=== PATIENT | female | born 1985 | race Caucasian/White ===

== ENCOUNTER 2017-03-14 20:15 | Day surgery (SDC) | payer OTHER, BC ==
[2017-03-14] MEDS: Lactated Ringers 1,000 ML IV SCH ×3 (19:00→21:36)
[2017-03-14] MEDS: Oxytocin/Normal Saline 30 UNIT/500 ML BAG IV SCH ×3 (19:20→21:37)
[~2017-03-14 20:15] MED LIST: Ferric Subsulfate Topical Soln 8 GM (8 ML) Bottle ONE; Silver Nitrate Applicator Each ONE; ceFAZolin 2 GM in Premix Bag 1 BAG IV ONE
[2017-03-14] MEDS ORDERED: Ferric Subsulfate Topical Soln 8 GM (8 ML) Bottle TOP ONE (20:56)
[2017-03-14] MEDS ORDERED: Oxytocin/Normal Saline 30 UNIT/500 ML BAG ONE (21:28)
[2017-03-14] MEDS ORDERED: Ondansetron 4 MG/2 ML SDV IV PRN (21:30)
[2017-03-14] MEDS ORDERED: Acetaminophen/Codeine 300-30 MG Tab PO PRN ×2 (21:30→21:33)
[2017-03-14] MEDS ORDERED: HYDROmorphone 1 MG/ML Syringe IVPUSH PRN (21:30)
[2017-03-14] MEDS ORDERED: Lactated Ringers 1,000 ML IV SCH (21:45)
[2017-03-15] MEDS: Oxytocin/Normal Saline 30 UNIT/500 ML BAG IV SCH ×2 (01:06→03:59)
--- NOTE | 2017-03-15 01:18 | OR ---
{null, DATE: 03/14/2017 PREOPERATIVE DIAGNOSIS: Incomplete miscarriage with heavy vaginal bleeding at 15 weeks 2 days' gestation by date and 12 weeks 2 days' gestation by recent ultrasound, which also showed demise. OPERATION PERFORMED: D and C with suction curettage. POSTOPERATIVE DIAGNOSIS: Incomplete miscarriage with heavy vaginal bleeding at 15 weeks 2 days' gestation by date and 12 weeks 2 days' gestation by recent ultrasound, which also showed demise. ESTIMATED BLOOD LOSS: In the operating room was 150 mL, although the patient did have approximately 350 mL of bleeding before going to the operating room. The patient has also passed tissue before going to the operating room. COMPLICATIONS: None. ANESTHESIA: General. DESCRIPTION OF PROCEDURE: After the induction of general anesthesia and after the patient was routinely prepped and draped in the usual fashion and in the dorsal lithotomy position, I did see a very large piece of placenta that was coming through the cervix and the vagina. This was carefully removed and sent to the Pathology Department. Now, the weighted speculum was inserted and single- tooth tenaculum was attached to the anterior lip of the cervix. The uterus did sound to approximately 10 cm. Now, the cervix which was already significantly dilated was gently further dilated with the Hinkle dilators. The sharp curettage was done initially and this was done very carefully and very systematically paying careful attention to all aspects of the endometrial cavity. A moderate amount of further tissue was obtained at that time. Now, the sponge, forceps was introduced into the uterine cavity and a slight amount of further tissue was obtained. All of this tissue was submitted on Telfa pads to the Pathology Department. Now, the #8 suction curette was also gently and carefully utilized and a slight amount of further blood and small fragments of tissue were obtained. As mentioned above, great caution was taken to make sure that all aspects of the endometrial cavity were carefully and systematically curetted, but we were careful to not over curette this delicate organ. Now, the IV intraoperative Pitocin was begun again. Just before this, we had given 2 g of IV Ancef for prophylaxis. Now, doing uterine massage, the uterus did contract down nicely and had minimal to no bloody discharge toward the end of the procedure. All of the instruments were now removed. The bimanual exam which had been done previously was unchanged on the second time around and as mentioned before, this revealed a 10-week size uterus that was in the mid position and no adnexal masses were detected. The sponge count was reported as correct. Estimated blood loss during this portion of the procedure was 150 mL. The patient's vital signs remained stable at all times, and she went to the recovery room in good condition. There were no intraoperative complications. The patient was initially scheduled for a D and C on 03/15/2017, but did begin with heavy bleeding late in the afternoon today of 03/14/2017 with the passage of some of the tissue per vagina. [facility] /[id number] }
[2017-03-15 10:18] VITALS: BP 91/63
== END 2017-03-15 09:57 | disposition home or self-care (01) ==
LOC: DL.SDS 20:15 → DL.MS 21:50 → UNDOADMOB 21:50 → DL.SDS 03-15 09:57 → UNDODISOB 03-15 09:57
PROVIDERS: ATTEND Obstetrics & Gynecology
DX: O03.1 Delayed or excessive hemorrhage following incomplete spontaneous abortion (principal); O36.4XX1 Maternal care for intrauterine death, fetus 1; Z3A.01 Less than 8 weeks gestation of pregnancy; J45.909 Unspecified asthma, uncomplicated; Z79.899 Other long term (current) drug therapy
CPT/HCPCS: 36415; 59812; 85014; 85018; 85027; 86850; 86900; 86901; J0690; J2590; J7120

== ENCOUNTER 2018-05-03 09:49 | Inpatient (IN) | payer OTHER, BC ==
[2018-05-03] MEDS ORDERED: Lidocaine 1% 30 ML SDV INJECT PRN (10:51)
[2018-05-03] MEDS ORDERED: Tranexamic Acid 1,000 MG in Sodium Chloride 0.9% 100 ML IV PRN (10:51)
[2018-05-03] MEDS ORDERED: Carboprost Tromethamine 250 MCG/1 ML Amp IM PRN (10:51)
[2018-05-03] MEDS ORDERED: Methylergonovine 0.2 MG/1 ML Amp IM PRN (10:51)
[2018-05-03] MEDS ORDERED: Lactated Ringers 500 ML IV ONE (10:51)
[2018-05-03] MEDS ORDERED: Ondansetron 4 MG/2 ML SDV IV PRN (10:51)
[2018-05-03] MEDS ORDERED: Misoprostol 400 MCG (4 X 100 MCG TAB) RECTAL PRN (10:51)
[2018-05-03] MEDS ORDERED: Sodium Chloride 0.9% 10 ML Syringe FLUSH PRN ×2 (10:51→20:10)
--- NOTE | 2018-05-03 12:48 | OBOUT ---
DATE: 05/03/2018 DATE AND TIME OF NST: Date: 05/03/2018 Time: 10:00 to 10:20. REASON FOR NST: 1. Intrauterine at 37 and 4/7 weeks, confirmed with 25 and 4/7-week ultrasound. 2. Gestational hypertension. 3. Intermittent headaches. 4. History of unstable lie, resolved last week, pending exam today. 5. GBS negative. 6. History of contractions status post betamethasone, 04/12/2018 and 04/13/2018. 7. Anticardiolipin antibody IgM x2 positive. 8. Antiphospholipid antibody positive. 9. On heparin and baby aspirin, missed dose today. 10.History of recurrent loss. 11.G8, P2-1-3-3. NST INTERPRETATION: During this time period, heart tone baseline is approximately 145 to 150 and there are at least two 15 x 15 beat per minute accelerations, making this strip reactive. It is also noted to be reassuring. Tocometer reveals potential of occasional contractions. Blood pressure 150/89, heart rate 85, temperature 98.1. Recheck blood pressure 150/83 with heart rate 99. ASSESSMENT: 1. Nonstress test, reactive and reassuring. 2. Tocometer with occasional contractions. PLAN: Due to her gestational hypertension and risk factors as above, the patient will be admitted. Please see admit history and physical for further details. Preeclampsia/HELLP labs/PIH panel will be done as well as a PTT, and we will evaluate her cervix and consider most likely artificial rupture of membranes if she has a stable lie today. The patient understands and agrees with the above treatment plan. [facility] /[id number] ALONSO
--- NOTE | 2018-05-03 13:33 | HP ---
PATIENT IDENTIFICATION: Isa Elias is a 32-year-old, G8, P2-1-3-3 intrauterine at 37 and 4/7 weeks, confirmed with 25 and 4/7 week ultrasound, who presents with gestational hypertension and headaches. HISTORY OF PRESENT ILLNESS: The patient describes headaches that have been intermittent, worsening over time over the last 3-4 days. She presented for a nonstress test today and had blood pressures elevated x2, 150/83 and initially 150/89. Because of this and the risk factors as above, as well as her headache, did discuss with proceeding with admission and induction of labor. She understands and agrees to the above treatment plan. To put this in context, she has CLAUDIA IgM x2 positive as well as has antiphospholipid antibody syndrome with history of recurrent loss, currently on heparin 10,000 units b.i.d. and baby aspirin daily, of which she skipped her dose this morning due to her above headaches and concerns. She also is status post betamethasone 04/12 to 04/13 due to her contractions. She has a history of fast labors and deliveries. Records were called for, reviewed as below, and supplemented by patient history. ANTEPARTUM LABORATORY DATA: ABO blood type AB positive, negative antibody. Rubella immune. Syphilis antibodies nonreactive. Negative hepatitis B surface antigen. Negative hep C, HIV, GC, and Chlamydia. Wet prep within normal limits. One-hour GTT was 95. GBS was negative in 3rd trimester. ALLERGIES: None. MEDICATIONS: Heparin 10,000 units b.i.d. subcutaneously, baby aspirin daily, iron sulfate 325 b.i.d., and vitamins daily. PAST MEDICAL AND PAST SURGICAL HISTORY: Remarkable for the above as well as a D and C in February of 2017. She also has history of asthma as a child. FAMILY HISTORY: Cancer in maternal grandfather with colon cance. Heart disease in maternal grandmother. Cousin with cerebral palsy. Negative family history otherwise. Negative for defects, anesthesia problems or bleeding problems. SOCIAL HISTORY: Lives in [place] with and her 3 children, dog, and guinea pig. 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 No alcohol, tobacco, or drug use. REVIEW OF SYSTEMS: Otherwise, reviewed and felt to be contributory for swelling. She lost her mucus plug. Denies any spotting, bleeding, leaking, otherwise has had good movement, and has an occasional contraction. OBJECTIVE: Vital Signs: Blood pressure 150/89, heart rate 85, temperature 98.1. Appearance: Female. Appears her stated age, acting appropriate for, nontoxic in appearance. HEENT: Head is atraumatic intact. EOMs intact. PERRLA. No obvious otorhinorrhea. Mucous membranes are moist. Neck: No obvious tenderness. Lungs: Clear to auscultation bilaterally. No increased work of breathing. Heart: S1 and S2. Regular rate and rhythm. Abdomen: Gravid, Augustin's indeterminate. Nontender and nondistended. Bowel sounds positive. No other organomegaly, pulsatile masses, or obvious hernias. No rebound, rigidity, or guarding. : Pending. Extremities: 1+ pitting edema to proximal tibia. Deep tendon reflexes 2/4 bilaterally and symmetric in lower extremities. Psychiatric: Moods and affect are congruent. Judgement and insight intact. Skin: Without cyanosis, clubbing, or jaundice. LABORATORY DATA: Pending is a PIH panel, a PTT. heart tones were found to be reactive and reassuring with a nonstress test today 135-145 baseline with acceleration noted with occasional contraction. ASSESSMENT: 1. Intrauterine at 37 and 4/7 weeks confirmed with 25 and 4/7 week ultrasound. 2. Gestational hypertension. 3. Headaches that are intermittent worsening over time associated with above. 4. History of unstable lie, resolved last week. We will re-evaluate her cervix today and consider induction of labor possibly with artificial rupture of membranes. 5. Group B Streptococcus negative. 6. History of contractions status post betamethasone 04/12 to 04/13. 7. Anticardiolipin antibody IgM x2 positive. 8. Antiphospholipid antibody syndrome, positive. 9. History of recurrent loss. 10.G8, P 2-1-3-3. PLAN: Due to her risk factors, shared decision was made to proceed with induction of labor. I did discuss with her following her PTT as she was recently on heparin, missed her dose today and skipped her baby aspirin dose today due to her symptoms. We will continue to follow clinically and closely. Please see other notes for further details. [facility] /[id number]
--- NOTE | 2018-05-03 14:39 | PN ---
DATE: 05/03/2018 SUBJECTIVE: The patient's headache is starting to improve minimally. OBJECTIVE: Vital Signs: Blood pressure 134/66, heart rate 98. Pelvic: heart tones 140 to 150 range baseline with accelerations noted. Tocometer reveals possible occasional contractions, nothing felt by the patient. Vaginal exam reveals to be 3+ cm, 25% to 50% effaced, -2 station, and vertex suspected. Artificial rupture of membranes done after discussion with the patient yielding copious amounts of clear fluid. ASSESSMENT AND PLAN: Intrauterine at 37 and 4/7 weeks, complicated by gestational hypertension. Labs returned negative for preeclampsia with a protein-creatinine ratio being 0.08 and HELLP labs being negative. She is group B streptococcus negative and now status post artificial rupture of membranes with copious amounts of clear fluid. Vertex was noted, and she had a history of unstable lie in the past. This obviously has been resolved, and we will continue to follow closely. [facility] /[id number]
[2018-05-03] MEDS: Lactated Ringers 1,000 ML IV SCH ×2 (17:00→17:40)
[2018-05-03] MEDS ORDERED: fentaNYL 100 MCG/2 ML SDV ONE (17:28)
[2018-05-03] MEDS ORDERED: Bupivacaine 0.75%/D5W 2 ML Amp ONE (17:28)
--- NOTE | 2018-05-03 18:31 | PCM.SN ---
- Free Text/Narrative Note: Intrathecal. sitting position, sterile prep and drape.1% lidocaine w bicarb for skinwheal to L2 L3, L3 L4,L4 L5 interspace, introducer x 9, 24 ga pencan x 9. Pos CSF, neg heme, neg parasthesia. 20 mcg pf sufenta, 30 mcg pf fentanyl, 0.4 ml pf NS and 6 mg of 0.75% pf bupivacaine injected after CSF aspiration. Pt to L lateral position. Procedure time 1735 to 1835.
[2018-05-03] MEDS ORDERED: Oxytocin/Normal Saline 30 UNIT/500 ML BAG IV SCH (19:15)
[2018-05-03] MEDS ORDERED: Oxytocin 10 Units/1 ML SDV IM PRN (20:10)
[2018-05-03] MEDS ORDERED: Ibuprofen 800 MG Tab PO PRN (20:10)
[2018-05-03] MEDS ORDERED: Benzocaine/Menthol 20%-0.5% Spray 56 GM Canister TOP PRN (20:10)
[2018-05-03] MEDS ORDERED: Simethicone 80 MG Tab.Chew PO PRN (20:10)
[2018-05-03] MEDS ORDERED: Zolpidem 5 MG Tab PO PRN (20:10)
[2018-05-03] MEDS ORDERED: Acetaminophen/oxyCODONE 325-5 MG Tab PO PRN (20:14)
[2018-05-03] MEDS ORDERED: diphenhydrAMINE 25 MG Tab PO PRN (20:26)
[2018-05-04] MEDS: Acetaminophen 325 MG Tab PO PRN ×3 (07:15→20:28)
[2018-05-04] MEDS: Docusate Sodium 100 MG Cap PO PRN (09:23)
[2018-05-04] MEDS: Prenatal Multivitamin with Calcium/Folic Acid/Iron Tab PO SCH (09:23)
[2018-05-04] MEDS: Enoxaparin 40 MG/0.4 ML Syringe SUBCUT SCH (20:28)
[2018-05-05] MEDS: Acetaminophen 325 MG Tab PO PRN (07:25)
[2018-05-05 07:34] VITALS: BP 137/79
[2018-05-05] MEDS: Enoxaparin 40 MG/0.4 ML Syringe SUBCUT SCH (08:47)
[2018-05-05] MEDS: Prenatal Multivitamin with Calcium/Folic Acid/Iron Tab PO SCH (08:47)
[2018-05-05] MEDS: Docusate Sodium 100 MG Cap PO PRN (08:47)
[2018-05-05] MEDS ORDERED: Enoxaparin 40 MG/0.4 ML Syringe SUBCUT PRN (09:00)
[2018-05-05] MEDS ORDERED: fentaNYL 100 MCG/2 ML SDV ITHECAL ONE (12:14)
[2018-05-05] MEDS ORDERED: Bupivacaine 0.75%/D5W 2 ML Amp ONE (12:14)
--- NOTE | 2018-05-06 09:44 | PN ---
DATE: 05/03/2018 SUBJECTIVE: The patient started to feel her contractions more. OBJECTIVE: heart tones in the 140s to 150s range. Acceleration x1 is seen. Tocometer reveals contractions every 1.5 to 2 to 3 minutes. Vaginal exam reveals her to be 5 cm, 50% to 75% effaced, -1 to -2 station, vertex suspected, and copious amounts of clear fluid noted. ASSESSMENT: Intrauterine at 37 and 4/7 weeks, complicated by gestational hypertension with intermittent headaches with history of unstable lie, that has now resolved with antiphospholipid antibody syndrome and CLAUDIA IgM antibody x2 positive with history of recurrent loss and requiring heparin and aspirin during this . Last doses were last night. PLAN: We will continue to follow up clinically and closely. Did discuss pain management options. We will re-evaluate in approximately 30 to 40 minutes or sooner if need be. [facility] /[id number]
--- NOTE | 2018-05-06 09:47 | PN ---
DATE: 05/03/2018 SUBJECTIVE: The patient is status post intrathecal and comfortable. OBJECTIVE: heart tones in the 130s to 140s and reassuring. Tocometer reveals contractions every couple of minutes. Vaginal exam reveals her to be 8 cm, 100% effaced, 0 to +1 station, vertex suspected. ASSESSMENT AND PLAN: 1. Nearing second stage of labor in a 8, para 2-1-3-3, intrauterine at 37-4/7 weeks with gestational hypertension and intermittent headaches. We will continue to follow clinically and closely. [facility] /[id number]
--- NOTE | 2018-05-06 10:05 | DEL ---
DATE: 05/03/2018 PREOPERATIVE DIAGNOSES: 1. Intrauterine 37 and 4/7 weeks, confirmed with 25 and 4/7-week ultrasound. 2. Gestational hypertension. 3. Headaches, intermittent. 4. History of unstable lie, resolved. 5. Group B Streptococcus negative. 6. History of contraction, status post betamethasone 04/12/2018 to 04/13/2018. 7. History of asthma as a child. 8. CLAUDIA IgM x2, positive. 9. Antiphospholipid antibody syndrome positive on heparin and aspirin until the evening before admission. 10.History current loss. 11.G8, P2-1-3-3. POSTOPERATIVE DIAGNOSES: 1. Intrauterine 37 and 4/7 weeks, confirmed with 25 and 4/7-week ultrasound, delivered. 2. Gestational hypertension. 3. Headaches, intermittent. 4. History of unstable lie, resolved. 5. Group B Streptococcus negative. 6. History of contraction, status post betamethasone 04/12/2018 to 04/13/2018. 7. History of asthma as a child. 8. CLAUDIA IgM x2, positive. 9. Antiphospholipid antibody syndrome positive on heparin and aspirin until the evening before admission. 10.History current loss. 11.G8, P2-1-3-3. 12.Periurethral and perineal abrasions, nonbleeding, non-repaired after discussion with patient. PROCEDURE PERFORMED: NST followed by artificial rupture of membranes and then subsequent spontaneous vaginal delivery on 05/03/2018. ANESTHESIA/ANALGESIA: The patient did receive an intrathecal in the first stage of labor. ESTIMATED BLOOD LOSS: 200 mL. FINDINGS: Female. scores and weight pending. SUMMARY OF EVENTS: The patient is a 32-year-old, G8, P2-1-3-3, intrauterine at 37 and 4/7 weeks, presented for a nonstress test, had gestational hypertension with blood pressures x2 with systolics in the 150s. She had intermittent headaches associated with this. Preeclampsia labs/HELLP labs were done which were negative. Because of this as well as her high risk factors as above and history of unstable lie that was resolved with vertex upon presentation, shared decision was made to proceed with the above procedures. She underwent NST followed by artificial rupture of membranes, followed closely. Later in the first stage of labor, she requested something for pain and was given intrathecal. She was found to be complete and I was called to the room. I donned sterile gown and gloves. Upon my arrival into the room, patient pushed with contractions and after approximately 2 to 3 contractions, vertex was delivered in SARITHA presentation, followed by anterior and posterior shoulder as well as rest of the without difficulty. Mouth and nares were suctioned. Cord was doubly clamped and cut, and was resuscitated on mother's abdomen. Then, approximately 10 mL of cord blood was obtained for labs. Placenta then delivered with gentle cord traction and fundal massage within approximately 5 to 10 minutes. Perineum, vagina, and perirectal areas were then examined, noted to have a small periurethral and perineal abrasion, nonbleeding, non-repaired after discussion with the patient. Mother and infant are currently stable at the time of dictation. [facility] /[id number]
--- NOTE | 2018-05-06 10:14 | PN ---
DATE: 05/04/2018 day #1. SUBJECTIVE: The patient is tolerating p.o., ambulating, urinating, passing flatus. OBJECTIVE: Vital Signs: Temp 97.5, heart rate 73, blood pressure 120/72, respiratory rate 18. Lungs: Clear to auscultation bilaterally. Heart: S1, S2. Regular rate and rhythm. Abdomen: Firm uterus at the umbilicus. Extremities: Trace pedal edema. No calf pain. LABORATORY DATA: White cell count 13.7, hemoglobin 12.2, and platelets 176. ASSESSMENT AND PLAN: day #1, status post spontaneous vaginal delivery, complicated with antiphospholipid antibody and CLAUDIA IgM positivity x2 with recommendation from [facility] to resume Lovenox in the period for 6 weeks. We will start on Lovenox 40 mg this evening and daily thereafter per recommendations. We will hold off on any NSAIDs for treatment of pain due to this and this was discussed with the patient, she understands and agrees with the above treatment plan. Possible discharge tomorrow. [facility] /[id number]
--- NOTE | 2018-05-06 11:56 | DISCH ---
ADMIT DIAGNOSES: 1. Intrauterine 37 and 4/7 weeks, confirmed with 25 and 4/7 week ultrasound. 2. Gestational hypertension. 3. Intermittent headaches. 4. History of unstable lie-resolved upon admission. 5. Group B streptococcus negative. 6. History of contraction, status post betamethasone, April 12 to April 13. 7. Anticardiolipin antibody IgM x2 positive. 8. Antiphospholipid antibody syndrome positive. 9. History recurrent loss. 10.On heparin and baby aspirin in the last few weeks due to the above. She was on Lovenox and baby aspirin prior. 11.G8, P2-1-3-3. 12.History of asthma as a child. POSTOPERATIVE DIAGNOSES: 1. Intrauterine 37 and 4/7 weeks, confirmed by 25 and 4/7 week ultrasound, delivered. 2. Gestational hypertension. 3. Intermittent headaches. 4. History of unstable lie-resolved, upon admission. 5. Group B streptococcus negative. 6. History of contraction, status post betamethasone, April 12 to April 13. 7. Anticardiolipin antibody IgM x2 positive. 8. Antiphospholipid antibody syndrome positive. 9. History recurrent loss. 10.On heparin and baby aspirin in the last few weeks due to the above. She was on Lovenox and baby aspirin prior. 11.G8, P2-1-3-3. 12.History of asthma as a child. 13.Periurethral and perineal abrasion, nonbleeding, non-repaired after discussion with patient. PROCEDURE PERFORMED: NST, artificial rupture of membranes, spontaneous vaginal delivery on date of admission per Dr. Finn. HISTORY OF PRESENT ILLNESS: Please see H and P. SUMMARY OF HOSPITAL COURSE: The patient was admitted on the above date with the above diagnoses and underwent the above procedures. She did have preeclampsia HELLP labs were negative. She went on to have a spontaneous vaginal delivery yielding a female with scores of 8 and 9, weighing 7 pounds 3 ounces (3255 g). Please see delivery note for further details. day #1, please see progress note. Labs were followed closely. White cell count 13.7, hemoglobin 12.2, which is the same from predelivery hemoglobin, and platelets were 176. day #2, date of discharge; the patient was tolerating p.o., ambulating, urinating, passing flatus, and requesting discharge. PHYSICAL EXAMINATION: Vital Signs: Last set of vitals updated and listed in the chart. Temperature 98.2, heart rate 81, blood pressure 137/79, respiratory rate 16. Lungs: Clear to auscultation bilaterally. Heart: S1 and S2. Regular rate and rhythm. Pelvic: Firm uterus around the umbilicus. Extremities: 1+ pitting edema to proximal tibia. No calf pain. CONDITION ON DISCHARGE COMPARED TO CONDITION ON ADMISSION: Improved. DISCHARGE INSTRUCTIONS: 1. Diet: As tolerated. 2. Activity: No lifting more than 20 pounds. No sit-ups, straining, and Pelvic rest for the next 6 weeks with immediate return to fertility discussed with the patient. 3. ReasonS to return or go to the emergency room were discussed with the patient in detail including, but not limited to, temperature greater than 100.4, foul-smelling discharge, red hot tender breasts, or increased vaginal bleeding. DISCHARGE MEDICATIONS: 1. [id number] Tylenol as needed. 2. Lovenox 40 mg subcutaneous daily for 6 weeks per MFM recommendations. 3. Breast pump script was written for. 4. Followup: Follow up for 6 week . I did discuss with the patient in the interim reasons to return or go to the emergency room in regard to her infant and ramifications of not doing so. She understands and agrees. [facility] /[id number]
== END 2018-05-05 12:15 | disposition home or self-care (01) | DRG 775 ==
LOC: DL.OBCHECK 09:49 → DL.OB 10:30 → OBSVTOIN 20:02 → DL.MS 05-04 22:30
PROVIDERS: ADMIT Family Medicine; ATTEND Family Medicine
PROC: 10E0XZZ Delivery of Products of Conception, External Approach (ICD-10-PCS; principal; 2018-05-03)
PROC: 10907ZC Drainage of Amniotic Fluid, Therapeutic from Products of Conception, Via Natural or Artificial Opening (ICD-10-PCS; 2018-05-03)
PROC: 4A1H7CZ Monitoring of Products of Conception, Cardiac Rate, Via Natural or Artificial Opening (ICD-10-PCS; 2018-05-03)
DX: O13.4 Gestational [pregnancy-induced] hypertension without significant proteinuria, complicating childbirth (principal); R51 Headache; O09.43 Supervision of pregnancy with grand multiparity, third trimester; Z3A.37 37 weeks gestation of pregnancy; Z37.0 Single live birth
CPT/HCPCS: 36415; 59025; 59409; 81003; 82565; 82570; 83615; 84156; 84450; 84460; 84520; 84550; 85027; 85730; A9270-GY; J1650; J2405; J2590; J7120

== ENCOUNTER 2021-10-17 09:18 | Emergency (ER) | payer OTHER, BC ==
[2021-10-17 09:34] VITALS: BP 153/93; PULSE 103
--- NOTE | 2021-10-17 10:08 | EDM.PDOC ---
ED HPI GENERAL MEDICAL PROBLEM - General Chief Complaint: Eye Problems Stated Complaint: VISION IMPAIRMENT Time Seen by Provider: 10/17/21 09:50 Source of Information: Reports: Patient, RN, RN Notes Reviewed History Limitations: Reports: No Limitations - History of Present Illness INITIAL COMMENTS - FREE TEXT/NARRATIVE: Isa is a 36 y/o female who presents to the ED via personal vehicle at the request of her primary care provider for vision changes, headache, and left eye droop. The patient reports her symptoms of left eye droop and subsequent headache began in June 2021; she has since doctored with her PCP and program director. She has been prescribed antihistamines, antibiotics, and more recently told to patch her left eye due to a new onset double vision. She notes the double vision has become more constant; she was set up for an MRI for November 07. She has been prescribed Imitrex [place] which her pharmacy will have in-stock for her today. She denies fever, shaking chills, dizziness, cough, sore throat, sinus pressure/pain, chest pain/pressure, shortness of breath, or dyspepsia. She denies tobacco, alcohol, or recreational drug use. - Related Data Allergies Allergy/AdvReac Type Severity Reaction Status Date / Time No Known Allergies Allergy Verified 10/17/21 09:34 Home Meds: Home Meds Acetaminophen 2 tab PO ASDIRECTED PRN 03/14/17 [History] Albuterol [Ventolin HFA] 1 - 2 puff INH ASDIRECTED PRN 03/14/17 [History] Past Medical History HEENT History: Reports: Impaired Vision, Other (See Below) Other HEENT History: WEARS CORRECTIVE LENS PRN Cardiovascular History: Reports: None Respiratory History: Reports: Asthma, Other (See Below) Other Respiratory History: as a child, does not use inhaler often Gastrointestinal History: Reports: None Genitourinary History: Reports: None 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 EFFICIENCY MANAGER History: Reports: Dysfunctional Uterine Bleeding, , Spontaneous Musculoskeletal History: Reports: None Neurological History: Reports: Migraines Psychiatric History: Reports: None Endocrine/Metabolic History: Reports: None Hematologic History: Reports: Other (See Below) Other Hematologic History: antiphospholipid syndrome Immunologic History: Reports: None Oncologic (Cancer) History: Reports: None Dermatologic History: Reports: None - Infectious Disease History Infectious Disease History: Reports: None - Past Surgical History Head Surgeries/Procedures: Reports: None HEENT Surgical History: Reports: Oral Surgery, Other (See Below) Other HEENT Surgeries/Procedures: WISDOM TEETH EXTRACTION Cardiovascular Surgical History: Reports: None Respiratory Surgical History: Reports: None GI Surgical History: Reports: None Endocrine Surgical History: Reports: None Neurological Surgical History: Reports: None Musculoskeletal Surgical History: Reports: None Oncologic Surgical History: Reports: None Dermatological Surgical History: Reports: None Social & Family History - Family History Family Medical History: No Pertinent Family History - Tobacco Use Tobacco Use Status *Q: Never Tobacco User Second Hand Smoke Exposure: No - Caffeine Use Caffeine Use: Reports: Coffee, Soda Other Caffeine Use: INTERMITTENT - Recreational Drug Use Recreational Drug Use: No ED ROS GENERAL - Review of Systems Review Of Systems: Comprehensive ROS is negative, except as noted in HPI. ED EXAM GENERAL W FULL EYE - Physical Exam Exam: See Below Exam Limited By: No Limitations General Appearance: Alert, No Apparent Distress Eye Exam: Left Eye: Vision Changes (Double vision), Bilateral Eye: EOMI, PERRL (3mm) Eyelids: Bilateral: Normal Appearance Conjunctiva & Sclera: Bilateral: Normal Appearance Extraocular Movements: Bilateral: Intact Pupils: Normal Accommodation Pupillary Size: Bilateral: 3 mm Pupillary Reaction: Bilateral: Brisk Ears: Normal External Exam Nose: Normal Inspection, Normal Mucosa, No Blood Throat/Mouth: Normal Inspection, Normal Oropharynx, Normal Voice, No Airway Compromise Head: Atraumatic, Normocephalic Neck: Normal Inspection, Supple, Non-Tender, Full Range of Motion Respiratory/Chest: No Respiratory Distress, Lungs Clear, Normal Breath Sounds, No Accessory Muscle Use, Chest Non-Tender Cardiovascular: Normal Peripheral Pulses, Regular Rate, Rhythm, No Gallop, No Murmur, No Rub GI/Abdominal: Normal Bowel Sounds, Soft, Non-Tender, No Distention, No Abnormal Bruit, No Mass, Pelvis Stable (Female) Exam: Deferred Rectal (Female) Exam: Deferred Back Exam: Normal Inspection, Full Range of Motion Extremities: Normal Inspection, Normal Range of Motion, Normal Capillary Refill Neurological: Alert, Oriented, CN II-XII Intact, Normal Cognition, Normal Gait, No Motor/Sensory Deficits Psychiatric: Normal Affect, Normal Mood Skin Exam: Warm, Dry, Intact, Normal Color, No Rash. No: Cyanosis, Jaundice, Mottled, Pallor Course - Vital Signs Last Recorded V/S: Last Vital Signs Temp 97 F 10/17/21 09:28 Pulse 103 H 10/17/21 09:28 Resp 16 10/17/21 09:28 BP 153/93 H 10/17/21 09:28 Pulse Ox 97 10/17/21 09:28 - Re-Assessments/Exams Free Text/Narrative Re-Assessment/Exam: 10/17/21 Molded Goods Operator spoke with radiology from this facility, unable to move appointment up. Molded Goods Operator spoke with radiology at [facility] in [place], appointment moved to November 01 11:30. Given worsening symptoms, will obtain CT head. Findings of examination and imaging reviewed with patient. Supportive cares discussed. Patient instructed to follow up with primary care provider and keep radiology appointment. Red flag signs and symptoms which would warrant immediate reevaluation reviewed. Patient verbalized understanding and agreement with the plan of care. Departure - Departure Time of Disposition: 10:04 Disposition: Home, Self-Care 01 Condition: Fair Clinical Impression: Double vision with both eyes open Headache Qualifiers: Headache type: unspecified Headache chronicity pattern: chronic headache Intractability: intractable Qualified Code(s): R51.9 - Headache, unspecified - Discharge Information *PRESCRIPTION DRUG MONITORING PROGRAM REVIEWED*: Not Applicable *COPY OF PRESCRIPTION DRUG MONITORING REPORT IN PATIENT ANA: Not Applicable Forms: ED Department Discharge Additional Instructions: 1.) Continue with your rescheduled MRI for November 01 at 11:30 in [place] with a check-in time of 11:15. 2.) Return to the emergency department with any worsening symptoms, including floaters, flashing lights, decreased vision, nausea, or persistent headache despite prescribed medication. 3.) Follow up with your primary care provider regarding today's visit. Sepsis Event Note (ED) - Evaluation Sepsis Screening Result: No Definite Risk - Focused Exam Vital Signs: Vital Signs Temp Pulse Resp BP Pulse Ox 10/17/21 09:28 97 F 103 H 16 153/93 H 97
--- NOTE | 2021-10-17 10:51 | CT ---
EXAMINATION: Head wo Cont SEX: Female AGE: 36 years CLINICAL HISTORY: 36-year-old female with persistent headache and "double vision" left eye. No previous exams of the head immediately available at this institution. No hypertension or known trauma. Scan technique: Volume acquisition of data emergency unenhanced cranial CT scan of the head and brain obtained with the patient lying supine on the Siemens multi slice scanner [place], [place]. All data archived in the PACS system for storage, reformatting axial/sagittal/coronal planes and study is bone/brain windows). Interpretation: Negative. 1. Uniformly thick bony calvarium without skull fracture, underlying brain contusion or epidural/subdural hematoma. 2. Symmetric clear pneumatization of the paranasal sinuses (asymmetric sclerosis mastoid sinuses). Normal TMJs. 3. Symmetric tapia-white matter pattern with underlying mirror-image normal ventricular system. No hydrocephalus. 4. No supratentorial or posterior fossa mass lesion. Faint physiologic midline pineal calcification. 5. Cerebellum and brainstem unremarkable. Occipital lobes unremarkable. No suprasellar mass lesion. 6. No ischemic infarcts, encephalomalacia or arachnoid cyst. 7. No sign of acute intracerebral, intraventricular or subarachnoid bleed.
== END 2021-10-17 11:17 | disposition home or self-care (01) ==
LOC: DL.ED 09:18
DX: R51.9 Headache, unspecified (principal); H53.2 Diplopia; J45.909 Unspecified asthma, uncomplicated
CPT/HCPCS: 70450; 99284-25